=== PATIENT | female | born 1940 | race Caucasian/White ===

== ENCOUNTER 2018-10-31 09:58 | Inpatient (IN) | payer MEDICARE ==
[~2018-10-31] VITALS: Ht 152.4 cm; Wt 82.3 kg
[~2018-10-31 09:58] MED LIST: ASPI81CH PO; ATOR10 PO; ATOR40TA PO; CLON.1 PO; CLOP75 PO; HYDCHL25 PO; HYDR10 PO; HYDR1TAB94 PO; INDERAL XL80 MG PO; LEVE500 PO; LOSA50 PO; LOSARTAN-HCTZ1 EACH PO; Lisinopril2.5 MG PO; MECL12.5 PO; MELO7.5 PO; METF500 PO; Mobic15 MG PO; NIFE60ER PO; [UNRECOGNIZED DRUG - REMARK]
[2018-10-31 10:27] LABS: BASOPHILS ABSOLUTE AUTO 0.01 K/mm3 (0.00-0.23); BASOPHILS PERCENT AUTO 0 % (0-2); EOSINOPHILS PERCENT AUTO 0 % (0-6); Hematocrit 36.9 % (33.0-51.0); Hemoglobin 12.4 g/dL (11.5-16.0); IMMATURE GRAN ABSOLUTE AUTO 0.06 K/mm3 (0.00-0.10); IMMATURE GRAN PERCENT AUTO 0 % (0-1); LYMPHOCYTES ABSOLUTE AUTO 1.49 K/mm3 (0.84-5.20); LYMPHOCYTES PERCENT AUTO 10 % (21-46); MONOCYTES ABSOLUTE AUTO 1.11 K/mm3 (0.16-1.47); MONOCYTES PERCENT AUTO 8 % (4-13); Mean Corpuscular HGB 30.5 pg (26.0-34.0); Mean Corpuscular HGB Conc 33.6 g/dL (31.5-36.5); Mean Corpuscular Volume 91 fL (80-100); Mean Platelet Volume 10.7 fL (9.1-12.4); NEUTROPHILS ABSOLUTE AUTO 11.93 K/mm3 (1.96-9.15); NEUTROPHILS PERCENT AUTO 82 % (41-73); Platelet Count 234 K/mm3 (150-400); RDW Coefficient Variation 12.2 % (11.7-14.2); RDW Standard Deviation 40.3 fL (35.1-46.3); Red Blood Cell Count 4.07 M/mm3 (3.80-5.20)
[2018-10-31 10:31] LABS: Source, Urine Catheter
[2018-10-31 10:36] LABS: Bilirubin, Urine Neg (Neg); Blood, Urine 1+ (Neg); Glucose Qualitative, Urine Neg (Neg); Ketones, Urine 1+ (Neg); Leukocyte Esterase, Urine 1+ (Neg); Nitrite, Urine Neg (Neg); Protein, Urine 2+ (Neg); Urobilinogen, Urine 1+ (Normal)
[2018-10-31 10:48] LABS: Alanine Aminotransfer (ALT/SGP 16 U/L (12-78); Albumin, Blood 3.2 g/dL (3.4-5.0); Albumin/Globulin Ratio 0.7 (0.8-1.8); Alk Phos 69 U/L (50-136); Anion Gap 8 mmol/L (6-16); Aspartate Aminotrans (AST/SGOT 13 U/L (12-37); Bilirubin, Total 0.6 mg/dL (0.1-1.0); Blood Urea Nitrogen 16 mg/dL (8-24); Bun/Creatinine Ratio 19.2 (12.0-20.0); CO2, Blood 26 mmol/L (21-32); Calcium, Blood 8.5 mg/dL (8.5-10.1); Chloride, Blood 103 mmol/L (98-108); Creatinine, Blood 0.83 mg/dL (0.40-1.00); Globulin, Blood 4.3 g/dL (2.2-4.0); Glomerular Filtration Rate >60 (60-); Glucose, Blood 183 mg/dL (70-99); Potassium, Blood 3.2 mmol/L (3.5-5.5); Sodium, Blood 137 mmol/L (136-145); Total Protein, Blood 7.5 g/dL (6.4-8.2)
[2018-10-31 10:50] LABS: Appearance, Urine Clear (Clear); Color, Urine Yellow (P-Yellow)
[2018-10-31 10:55] LABS: Bacteria Not Seen /hpf; Red Blood Cells, Urine 0-2 /hpf (0-2); Squamous Epithelial Cells Few /hpf (Few); White Blood Cells, Urine 0-2 /hpf (0-5)
[2018-10-31 10:56] LABS: Mucus Light (0-Heavy); Transitional Epithelial Cells Few /hpf (0-Rare)
[2018-10-31 11:48] LABS: Influenza A Negative (NEGATIVE); Influenza B Negative (NEGATIVE)
[2018-10-31 11:58] LABS: International Normalized Ratio 1.14; Prothrombin Time Results 11.9 Sec (9.7-11.5)
[2018-10-31] MEDS ORDERED: **INCOMPLETE MED REC (13:18)
--- NOTE | 2018-10-31 17:23 | NUR ---
PT ARRIVED TO PCU 10 VIA GURNEY FROM ED. REPORT OBTAINED FROM ER NURSE, PT IS LAYING ON HER SIDE ON THE GURNEY, ASKED HER TO TURN TO HER BACK, BUT SHE ISN'T REALLY RESPONDING, MOVED HER ONTO THE BED, SHE CONTINUALLY TRIES TO MOVE TO THE SIDE, GOT HER INTO A GOWN, SHE IS FEBRILE AT 102.9. DID A BEDSIDE WATER SWALLOW EVAL WITH FAMILY IN ROOM, THEY ARE SAYING SHE CAN'T HEAR. WAS ABLE TO GET HER TO WAKE UP AND TAKE SOME WATER AND SWOLLOW A TYLENOL, SHE SWOLLOWED WELL. LUNGS ARE CLEAR DIM IN BASES, RESP EVEN AND UNLABORED, NOT ABLE TO REALLY COOPERATE WITH ASSESSMENT, SHE IS ON 2 LITERS OF 02 FROM ED, SATS IN THE MID 90'S, HRR, TELE IN PLACE RUNNING SR PER MONITOR, SEE STRIP, NO EDEMA NOTED, PPP+1, CAP REFILL <3SEC, VS STABLE, AFEBRILE, IV SITE TO RIGHT HAND 22G, SITE IS CLEAR AND PATENT, BTX4, ABD FLAT SOFT NONTENDER, ATTENDS IN PLACE, SKIN C/W/D, JOSE MARIA HENSON, ORIENTED FAMILY TO CALL LIGHT AND ROOM LAYOUT, CALL LIGHT IN REACH.
--- NOTE | 2018-10-31 18:20 | NUR ---
POWER GLIDE WAS PLACED TO LAUREEN FOR IV ACCESS, FLUSHES WELL. PT WAS GIVEN PO TYLENOL, HER TEMP IS NOW 104.1, DR. BLAIR NOTIFIED, RECIEVED ORDER FOR A ONE TIME DOSE OF TORIDAL, THIS WILL BE GIVEN. ICE PACK TO HER NECK AND COVERS ARE OFF. CALL LIGHT IN REACH.
--- NOTE | 2018-10-31 18:44 | NUR ---
PT UNCHANGED, TORIDAL GIVEN, ZOSYN HUNG, PT CURLED UP IN BED, UNCHANGED. CALL LIGHT IN REACH.
--- NOTE | 2018-10-31 19:25 | NUR ---
CARE ASSUMPTION PT LETHARGIC, OPENS EYES FOR SHORT TIME IN RESPONSE TO VERBAL STIMULATION. PT NOT VERBALLY RESPONDING, NOT NODDING/SHAKING HER HEAD FOR Y/N QUESTIONS EITHER. BP 91/50, TEMPERATURE 101.8 DESPITE PREVIOUS TX W/ ONE TIME ORDER BY MD BLAIR, SEE EMAR. FAN AND ICE PACK BEING ROTATED ON PT. WILL CONTINUE TO MONITOR AND PROVIDE CARE.
[2018-11-01 04:58] LABS: BASOPHILS ABSOLUTE AUTO 0.03 K/mm3 (0.00-0.23); BASOPHILS PERCENT AUTO 0 % (0-2); EOSINOPHILS PERCENT AUTO 0 % (0-6); Hematocrit 32.3 % (33.0-51.0); IMMATURE GRAN ABSOLUTE AUTO 0.06 K/mm3 (0.00-0.10); IMMATURE GRAN PERCENT AUTO 0 % (0-1); LYMPHOCYTES ABSOLUTE AUTO 1.11 K/mm3 (0.84-5.20); LYMPHOCYTES PERCENT AUTO 8 % (21-46); MONOCYTES PERCENT AUTO 6 % (4-13); Mean Corpuscular HGB 30.6 pg (26.0-34.0); Mean Corpuscular HGB Conc 34.1 g/dL (31.5-36.5); Mean Corpuscular Volume 90 fL (80-100); Mean Platelet Volume 10.9 fL (9.1-12.4); NEUTROPHILS ABSOLUTE AUTO 11.73 K/mm3 (1.96-9.15); NEUTROPHILS PERCENT AUTO 86 % (41-73); Platelet Count 200 K/mm3 (150-400); RDW Coefficient Variation 12.1 % (11.7-14.2); RDW Standard Deviation 40.4 fL (35.1-46.3); White Blood Cell Count 13.73 K/mm3 (4.00-11.30)
[2018-11-01 05:18] LABS: Anion Gap 9 mmol/L (6-16); Blood Urea Nitrogen 15 mg/dL (8-24); Bun/Creatinine Ratio 18.1 (12.0-20.0); CO2, Blood 25 mmol/L (21-32); Calcium, Blood 8.1 mg/dL (8.5-10.1); Chloride, Blood 105 mmol/L (98-108); Creatinine, Blood 0.83 mg/dL (0.40-1.00); Glomerular Filtration Rate >60 (60-); Glucose, Blood 165 mg/dL (70-99); Potassium, Blood 3.1 mmol/L (3.5-5.5); Sodium, Blood 139 mmol/L (136-145)
--- NOTE | 2018-11-01 05:58 | NUR ---
SHIFT SUMMARY PT MORE ALERT MID SHIFT, HOLDING EYES OPEN, SAYING WORDS BUT NOT ANSWERING QUESTIONS OR MAKING SENSE WHEN SPEAKING. PT WOKE STATING "I'M SUPPOSED TO BE.." REPEATIVELY W/OUT FINISHING SENTENCE. PT REORIENTED AND DIRECTED W/OUT RESPONSE FROM PT. PT TEMPERATURE ELEVATED. BLANKET REMOVED W/ PT GOWN & SHEET ONLY COVERING PT, PO TYLENOL GIVEN & FAN ON PT. PT LUNG SOUNDS CLEAR T/O, DIM IN BASES. SPO2 > 92% ON 2L NC OR RA T/O SHIFT. MONITOR SHOWS NSR, HR 70'S-90'S. PT INCONTINENT, WEARING ATTENDS. PRN ETIENNE CARE/ATTENDS CHANGES PROVIDED. PT'S DAUGHTER IN TO SEE PT THIS AM. PT DAUGHTER STATES PT'S OF 60 YRS 10/15/18 AND STATES "IT'S BEEN A ROUGH MONTH. SHE'S HARDLY BEEN EATING AND IT'S JUST BEEN A LOT." PT IN BED W/ SIDE RAILS UP X2, BED ALARM & TAB ALARM ON. PT REPOSITIONING SELF IN BED, GETTING UP TO EDGE OF BED REQUIRING STAFF ASSIST. WILL CONTINUE TO MONITOR AND PROVIDE CARE UNTIL REPORT OFF TO DAY SHIFT RN.
--- NOTE | 2018-11-01 07:55 | NUR ---
PT LAYING IN BED WITH EYES CLOSED, OPENS EYES AND LOOKS AT NURSE WHEN NAME IS CALLED AND SHE IS TOUCHED, NO VERBAL RESPONSE AT ALL. SHE IS COLD TRYING TO CUDDLE IN BLAKETS, STILL HAS A TEMP OF 100, BUT SEEMS MUCH MORE COMFORTABLE THAN LAST NIGHT WHEN SHE WAS 104.2. LUNGS ARE A BIT COURSE T/O, RESP EVEN AND UNLABORED, NO COUGH NOTED, HRR, TELE IN PLACE RUNNING SR WITH A BBB, NO EDEMA NOTED, PPP+2, CAP REFILL <3SEC, VS STABLE, AFEBRILE, IV SITES ARE CLEAR AND PATENT, PIV TO LEFT HAND 22 G, POWER GLIDE TO LAUREEN INFUSING LR ORDERED, BTX4, ABD ROUND SOFT NONTENDER, INCONT OF URINE, ATTENDS IN PLACE, SKIN C/W/D, JOSE MARIA HENSON, CALL LIGHT IN REACH.
--- NOTE | 2018-11-01 12:17 | NUR ---
PT HAS A TEMP OF 104.7, TYLENOL GIVEN AFTER A SIP OF WATER, NO SIGHNS OF COUGHING AFTER WATER. WHEN SHE DOES SPEAK IT IS WORD SALAD. CALL LIGHT IN REACH.
--- NOTE | 2018-11-01 18:38 | NUR ---
GRAND DAUGHTER WAS IN CRYING BECAUSE SHE TOOK HER TEMP AND THOUGHT IT WAS 104, EXPLAINED THAT IT HAS GONE UP TODAY, BUT SHE RESPONDED TO TYLENOL, THIS NURSE CHECKED IT, IS 102.6, THERE IS ONE THERMOMETER THAT IS NOT REGISTERING CORRECTLY, SHE WAS ASKED NOT TO DO THIS HERSELF, AND ASK TO HAVE IT DONE, GAVE PT A TYLENOL, WITH WATER, SHE SWALLOWED FINE, CALL TO DR. BLAIR FOR ORDERS FOR CLEAR LIQUIDS, HE ALSO ORDERED IBUPROPHEN, CALL LIGHT IN REACH.
--- NOTE | 2018-11-01 18:45 | NUR ---
GAVE PT SHADI, SHE ATE IT ENTHUSIASTICALLY WITHOUT DIFF, NO COUGHING. TEMP NOW 99.2. CALL LIGHT IN REACH.
--- NOTE | 2018-11-01 19:38 | NUR ---
PM NOTE. ASSUMED CARE OF PT APROX 1900, PT WAKES TO VERBAL STIMULUS, PT NODS HER HEAD AND SMILES WHEN ASKED WHERE SHE IS AT, WHAT HER NAME IS AND DATE. PT FALLS BACK ASLEEP QUICKLY WHEN NOT TALKING TO HER. PT IS UNABLE TO RESPOND PROPERLY TO QUESTIONS AT THIS TIME. TELE INTACT, NSR IN THE 80'S PER DIRECTOR EXPORT, PT'S BP 108/58. NO EDEMA NOTED ON ASSESSMENT. L/S SLIGHTLY COARSE T/O AND DIM IN THE BASES, PT'S O2 STATS ARE >90% ON RA. BT PRESENT AND HYPERACTIVE, ABD IS SOFT AND NONTENDER TO PALP. PT IS INCONT OF BOWEL AND BLADDER, ATTENDS ARE C/D/I AT THIS TIME. PT IS 2 Q TURNS, BUT PT IS ABLE TO MOVE HERSELF IN BED AT TIMES. CALL LIGHT IN REACH, BED IS LOCKED AND LOW, BED ALARM IN ON, WILL CONTINUE TO MONITOR.
--- NOTE | 2018-11-01 23:59 | NUR ---
PT UPDATE... DURING A VS CHECK PT'S TEMP IS NOTED TO BE 104.8, PT CHECKS ARE FLUSHED, HER WHOLE BODY IS VERY WARM TO TOUCH EXCEPT HER HANDS. PT IS VERY LETHARGIC AND WILL OPEN HER EYES TO TOUCH AND VERBAL STIMULUS. PT HAS WORD SALAD.
[2018-11-02 04:01] LABS: BASOPHILS ABSOLUTE AUTO 0.02 K/mm3 (0.00-0.23); BASOPHILS PERCENT AUTO 0 % (0-2); EOSINOPHILS PERCENT AUTO 0 % (0-6); Hematocrit 31.5 % (33.0-51.0); Hemoglobin 10.5 g/dL (11.5-16.0); IMMATURE GRAN ABSOLUTE AUTO 0.06 K/mm3 (0.00-0.10); IMMATURE GRAN PERCENT AUTO 1 % (0-1); LYMPHOCYTES PERCENT AUTO 11 % (21-46); MONOCYTES ABSOLUTE AUTO 1.05 K/mm3 (0.16-1.47); MONOCYTES PERCENT AUTO 8 % (4-13); Mean Corpuscular HGB 30.6 pg (26.0-34.0); Mean Corpuscular HGB Conc 33.3 g/dL (31.5-36.5); Mean Corpuscular Volume 92 fL (80-100); Mean Platelet Volume 10.7 fL (9.1-12.4); NEUTROPHILS ABSOLUTE AUTO 10.58 K/mm3 (1.96-9.15); NEUTROPHILS PERCENT AUTO 80 % (41-73); Platelet Count 184 K/mm3 (150-400); RDW Coefficient Variation 12.4 % (11.7-14.2); Red Blood Cell Count 3.43 M/mm3 (3.80-5.20); White Blood Cell Count 13.21 K/mm3 (4.00-11.30)
[2018-11-02 04:18] LABS: Anion Gap 9 mmol/L (6-16); Blood Urea Nitrogen 17 mg/dL (8-24); Bun/Creatinine Ratio 21.9 (12.0-20.0); CO2, Blood 24 mmol/L (21-32); Calcium, Blood 7.9 mg/dL (8.5-10.1); Chloride, Blood 106 mmol/L (98-108); Creatinine, Blood 0.78 mg/dL (0.40-1.00); Glomerular Filtration Rate >60 (60-); Glucose, Blood 152 mg/dL (70-99); Potassium, Blood 3.1 mmol/L (3.5-5.5); Sodium, Blood 139 mmol/L (136-145)
--- NOTE | 2018-11-02 06:37 | NUR ---
SHIFT SUMMARY. PT STILL REMAINES FEBRILE AT 100.7. PT HAS BEEN VERY SLEEP T/O SHIFT, WAKING TO TOUCH OR VERBAL STIMULUS BUT FALLS BACK ASLEEP QUICKLY. PT HAS HAD COOL WASH CLOTH AND ICE PACKS T/O THIS SHIFT WELL. PT DOES NOT RESPOND APROP TO QUESTIONS AND HAS WORD SALAD WHEN SHE DOES ATTEMPT TO ANSWER. PT HAS BEEN INCONT WITH ATTEMPTS TO USE THE BED LUZ. PT'S OTHER VS HAVE BEEN STABLE. CALL LIGHT IN REACH, BED IS LOCKED AND LOW W/BED ALARM ON. WILL CONTINUE TO MONITOR UNTIL REPORT IS GIVEN TO ONCOMING RN.
--- NOTE | 2018-11-02 08:22 | NUR ---
NURSING PCU DAYSHIFT: Assumed care of pt at approx 0700. Alert and oriented this a.m., ROSEBUD though this is worse on the L d/t chronic infection, green drainage noted from ear, afebrile. General weakness present though able to move all ext's equally. Answers orientation questions appropriately. Skin is fragile w/no breakdown noted. Tele in place, NSR w/BBB, murmur noted, BP stable, no noted edema, no c/o CP/pressure, L/S w/crackles present in RUL, denies dyspnea, no noted cough, O2 sat stable on RA. Abd SNT, BT+, incontinent of urine at times. PIV x1 s/l, PG present in RUE w/LR infusing at 125cc/hr. Pt currently sitting up in bed independently having a CL breakfast. Denies any current needs or questions regarding plan of care. Oriented to call system and fall prevention discussed. Bed alarm set for safety purposes. Awaiting rounding from PMD, cont to monitor for any changes.
[2018-11-02 13:30] LABS: Vancomycin, Trough 2.5 ug/mL (5.0-10.0)
[2018-11-02] MEDS ORDERED: DICL75ER PO (14:54)
--- NOTE | 2018-11-02 16:38 | NUR ---
NURSING PCU DAYSHIFT SUMMARY: Pt has continued to show improvement t/o the shift. OOB to BSC and chair w/two staff assist. Remains weak though able to transfer w/direction. Tolerated approx 2hrs OOB before becoming tired and wanting to go BTB for a nap. Bed bath and linen change completed by QUALITY ASSISTANT. Family at bedside in the afternoon. Update provided, plan of care discussed. Pt's family appeared pleased w/the noted improvement and spent time at the bedside conversing with pt. Bed alarm remains in use though pt has appropriately used the call light t/o the entire shift. Currently denies any questions/needs. Cont to monitor until rpt is given to NOC RN.
[2018-11-02 18:36] LABS: U Amphetamine Screen Not Detected; U Barbituate Screen Not Detected; U Benzodiazapine Screen Not Detected; U Buprenorphine Screen Not Detected; U Cannabinoids Screen Not Detected; U Cocaine Screen Not Detected; U Methadone Screen Not Detected; U Methamphetamine Screen Not Detected; U Opiates Screen Not Detected; U Oxycodone Screen Not Detected; U Phencyclidine Screen Not Detected; U Propoxyphene Screen Not Detected
--- NOTE | 2018-11-02 20:08 | NUR ---
PM NOTE. ASSUMED CARE OF PT APROX 1900, PT IS A&O, SHE IS ABLE TO STATE WHERE SHE IS, THE MONTH, AND THE PRESIDENT, PT STATED IT WAS 1995 AND DID NOT KNOW THE DAY. PT IS ABLE TO RESPOND PROPERLY TO QUESTIONS AND FOLLOWS DIRECTION, THIS IS A GREAT IMPROVMENT FROM LAST NOC SHIFT. PT IS CONT AND IS ABLE TO USE THE [facility] W/2 PERSON TRANSFER. TELE INTACT, SNR W/BBB IN THE 80'S PER FILING CLERK, PT'S BP 131/72, PT HAS NO EDEMA ON ASSESSMENT. PT L/S ARE CLEAR T/O BUT COARSE IN THE BASES, PT IS ON RA W/STATS >90%. RESPIRATIONS ARE EVEN AND UNLABORED AT REST, RR INCREASED FROM 21 TO 24 W/TRANSFER TO THE [facility], BREATHIING BECAME SLIGHTLY LABORED AT THAT TIME BUT STATS WERE STILL IN THE HIGH 90%. BT PRESENT AND HYPERACTIVE, ABD IS SOFT AND NONTENDER TO PALP. CALL LIGHT IN REACH, BED IS LOCKED AND LOW WILL CONTINUE TO MONITOR.
--- NOTE | 2018-11-03 06:32 | NUR ---
SHIFT SUMMARY. NO ACUTE CHANGES NOTED THIS SHIFT. PT HAS BEEN A&O AND HAS BEEN USING HER CALL LIGHT APROP TO CALL STAFF TO USE THE BSC, PT HAS BEEN CONT ALL SHIFT. PT'S VS HAVE BEEN STABLE T/O. CALL LIGHT IN REACH, BED IS LOCKED AND LOW WILL CONTINUE TO MONITOR UNTIL REPORT IS GIVEN TO ONCOMING RN.
--- NOTE | 2018-11-03 08:03 | NUR ---
NURSING PCU DAYSHIFT: Assumed care of pt at approx 0700. A/O, very pleasant, cooperative w/care. COWLITZ though L worse than R, small amt of green drainage noted in L ear canal. Skin is intact w/no breakdown noted. General weakness, able to transfer w/two staff assist. Denies any pain/discomfort. Tele in place, NSR w/BBB, no c/o CP/pressure, murmur auscultated, SBP 90's, no noted edema. L/S cta t/o, O2 sat upper 90's on RA, denies dyspnea, no noted cough. Abd SNT, BT+, voiding w/o difficulty. PG present in RUE, s/l. Pt currently OOB in chair for FL breakfast, plan to upgrade to soft diet for lunch, pt is agreeable. Pt denies any current needs or questions regarding plan of care. Call light in reach, tab alarm in use for safety purposes. Awaiting rounding from PMD, cont to monitor for any changes.
[2018-11-03 14:03] LABS: Adenovirus F 40/41 Not Detected (NOT DETECT); Astrovirus Not Detected (NOT DETECT); Campylobacter Sp Not Detected (NOT DETECT); Cryptosporidium Not Detected (NOT DETECT); Cyclospora Cayetanensis Not Detected (NOT DETECT); E. Coli O157 Not Detected (NOT DETECT); Entamoeba Histolytica Not Detected (NOT DETECT); Enteroaggregative E. coli-EAEC Not Detected (NOT DETECT); Enteropathogenic E. coli-EPEC Not Detected (NOT DETECT); Enterotoxigenic E. coli-ETEC Not Detected (NOT DETECT); Giardia Lamblia Not Detected (NOT DETECT); Norovirus GI/GII Not Detected (NOT DETECT); Plesiomonas Shigelloides Not Detected (NOT DETECT); Rotavirus A Not Detected (NOT DETECT); Salmonella Sp Not Detected (NOT DETECT); Sapovirus Not Detected (NOT DETECT); Shiga Toxin-prod E. coli-STEC Not Detected (NOT DETECT); Shigella/Enteroin E. coli-EIEC Not Detected (NOT DETECT); Vibrio Cholerae Not Detected (NOT DETECT); Vibrio Sp Not Detected (NOT DETECT); Yersinia Enterocolitica Not Detected (NOT DETECT)
--- NOTE | 2018-11-03 18:20 | NUR ---
NURSING PCU DAYSHIFT SUMMARY: Pt has continued to do well t/o the shift. VS have remained stable, cardiac and respiratory status unchanged. Pt has remained oriented and appropriate t/o the shift. Upgraged to soft diet, tolerating w/no noted signs of aspiration. Remains weak and requires staff assistance w/transfers. Family at bedside t/o the shift, update provided. ENT consult placed and called to answering service for tomorrow (11/04/18). Seen by PMD at bedside, plan of care discussed. Pt currently denies any questions/needs. Call light remains in reach, cont to monitor until rpt is given to NOC RN.
--- NOTE | 2018-11-03 20:55 | NUR ---
PM NOTE. ASSUMED CARE OF PT APROX 1900, PT IS A&O, BUT SLOW TO RESPOND, PT IS ABLE TO ANSWER QUESTIONS APPROPRIATELY. PT HAS GREATLY IMPROVED FROM LAST BLACK TOP RAKER. TELE INTACT, NSR W/BBB IN THE 70'S PER SALAD COUNTER ATTENDANT, PT'S BP 118/74. NO EDEMA NOTED ON ASSESSMENT. PT'S L/S CLEAR T/O. BT PRESENT AND HYPERACTIVE, ABD IS SOFT AND NONTENDER TO PALP. GREEN DISCHARGE IS NOTED FROM THE PT'S LEFT EAR, OUTER EAR WAS CLEANED WITH WARM DAMP WASH RAG. ENT CONSULT WAS PLACED AND ENT PROVIDER TO SEE PT IN THE AM. CALL LIGHT IN REACH, BED IS LOCKED W/BED ALARM ON, WILL CONTINUE TO MONITOR.
[2018-11-04 05:13] LABS: BASOPHILS ABSOLUTE AUTO 0.01 K/mm3 (0.00-0.23); BASOPHILS PERCENT AUTO 0 % (0-2); EOSINOPHILS ABSOLUTE AUTO 0.49 K/mm3 (0.00-0.68); EOSINOPHILS PERCENT AUTO 7 % (0-6); Hematocrit 28.2 % (33.0-51.0); Hemoglobin 9.3 g/dL (11.5-16.0); IMMATURE GRAN ABSOLUTE AUTO 0.05 K/mm3 (0.00-0.10); IMMATURE GRAN PERCENT AUTO 1 % (0-1); LYMPHOCYTES ABSOLUTE AUTO 1.51 K/mm3 (0.84-5.20); LYMPHOCYTES PERCENT AUTO 23 % (21-46); MONOCYTES ABSOLUTE AUTO 0.46 K/mm3 (0.16-1.47); MONOCYTES PERCENT AUTO 7 % (4-13); Mean Corpuscular HGB 30.1 pg (26.0-34.0); Mean Corpuscular Volume 91 fL (80-100); Mean Platelet Volume 11.3 fL (9.1-12.4); NEUTROPHILS ABSOLUTE AUTO 4.19 K/mm3 (1.96-9.15); NEUTROPHILS PERCENT AUTO 63 % (41-73); Platelet Count 181 K/mm3 (150-400); RDW Coefficient Variation 12.5 % (11.7-14.2); Red Blood Cell Count 3.09 M/mm3 (3.80-5.20); White Blood Cell Count 6.71 K/mm3 (4.00-11.30)
--- NOTE | 2018-11-04 05:57 | NUR ---
SHIFT SUMMARY. NO ACUTE CHANGES NOTED THIS SHIFT. PT'S VS HAVE BEEN STABLE, PT DENIES CHEST PAIN/PRESSURE, SOB OR N/V. PT HAS BEEN A 1 PERSON ASSIST TO THE BSC AND CALLS APPROPRIATELY. PT TOLD THIS RN THAT NORMALLY SHE HAS GREEN DISCHARGE FROM HER RIGHT EAR AND NOT HER LEFT, PT STATES THIS IS NEW. CALL LIGHT IN REACH, BED IS LOCKED AND LOW WILL CONTINUE MONITOR UNTIL REPORT IS GIVEN TO ONCOMING RN.
[2018-11-04 06:26] LABS: Anion Gap 10 mmol/L (6-16); Blood Urea Nitrogen 16 mg/dL (8-24); Bun/Creatinine Ratio 22.5 (12.0-20.0); CO2, Blood 22 mmol/L (21-32); Calcium, Blood 7.8 mg/dL (8.5-10.1); Chloride, Blood 109 mmol/L (98-108); Creatinine, Blood 0.71 mg/dL (0.40-1.00); Glomerular Filtration Rate >60 (60-); Glucose, Blood 119 mg/dL (70-99); Potassium, Blood 3.5 mmol/L (3.5-5.5); Sodium, Blood 141 mmol/L (136-145)
--- NOTE | 2018-11-04 12:07 | NUR ---
Assumed Care: Assumed care of pt at approx 0700. VSS. In no apparent sign of distress. Denies any pain. Deneis any acute complaints or events this AM. Pt is A&Ox4 this AM and responding appropriately to all questions. Pt is medical status, but no bed assignment at this time. Pt repositions self in bed. Pt is currently resting in bed with call light within reach. See shift assessment for detailed assessment. Denies any further questions, complaints or requests at this time. Will continue to monitor.
--- NOTE | 2018-11-04 19:25 | NUR ---
Shift Summary No acute changes since initial shift assessment. VSS. In no apparent sign of distress. Pt has remained A&Ox4. Calls appropriately and repositions self. No acute changes on tele. Pt has remained on RA. At approx 1750 pt began to sound mildly wheezy in very far upper airways, but lungs clear t/o when auscultating with stethoscope. Repositioned pt and examined throat which did not appear swollen. Wheezing sound improved with repositiong. Pt not SOB. Pt denies any acute events/complaints t/o the shift. Pt is currently resting in bed with call light within reach. Denies any further questions, complaints or requests at this time. Report given to keke SAMPSON.
--- NOTE | 2018-11-05 06:04 | NUR ---
SHIFT SUMMARY PT ALERT AND ORIENTED. VS STABLE. PT ABLE TO CALL APPROPRIATELY AND REPOSITION SELF INDEPENDENTLY. PT HAS REMAINED ON RA WITH 02 SATS >92%. LS EXP WHEEZES IN UPPER LOBES. PT ABLE TO AMBULATE TO BS NEEDED TO VOID. PT DENIES FEELING SOB. HR DECREASED TO 40'S ON TELE, BUT PT ASYMPTOMATIC. PULSE CHECKED AT THE BEDSIDE MANUALLY WAS 68. BP STABLE. WILL CONTINUE TO MONITOR AND REPORT TO ONCOMING RN. CALL LIGHT IN REACH.
--- NOTE | 2018-11-05 08:10 | NUR ---
INITIAL ASSESSMENT: Pt sitting up in chair. Denies pain. A/O x 4 this am. LS with some exp wheezing in upper lobes. BT positive. Pulses palp. HR reg, slight murmur. VSS. Up in chair for breakfast. Call light in reach. Will monitor.
[2018-11-05] MEDS ORDERED: ACET500 PO (15:12)
[2018-11-05] MEDS ORDERED: LEVFLO500 PO (15:13)
[2018-11-05] MEDS ORDERED: METO25 PO (15:13)
--- NOTE | 2018-11-05 15:42 | NUR ---
DISCHARGE: Pt and son given verbal and written discharge instructions, deines questions. Power glide discontinued, cath intact. Rx called to [facility] on [address] and [address]. Stable at time of discharge. Left via w/c with [facility]
== END 2018-11-05 15:33 | disposition home or self-care (01) | DRG 871 ==
LOC: ER 09:58 → PCU 13:35
PROVIDERS: Emergency Medicine; Pharmacist; ADMIT Internal Medicine
DX: A40.3 Sepsis due to Streptococcus pneumoniae (principal); J18.9 Pneumonia, unspecified organism; G92 Toxic encephalopathy; R65.20 Severe sepsis without septic shock; I10 Essential (primary) hypertension; E87.6 Hypokalemia; D64.9 Anemia, unspecified; H60.60 Unspecified chronic otitis externa, unspecified ear; E78.5 Hyperlipidemia, unspecified; K21.9 Gastro-esophageal reflux disease without esophagitis; Z86.73 Personal history of transient ischemic attack (TIA), and cerebral infarction without residual deficits; Z87.891 Personal history of nicotine dependence; Z79.02 Long term (current) use of antithrombotics/antiplatelets; Z79.899 Other long term (current) drug therapy
CPT/HCPCS: 36415; 70450; 71045; 80048; 80053; 80202; 81001; 83605; 84132; 84145; 84484; 85025; 85610; 85651; 87040; 87184; 87186; 87507; 87804; 93005; 93010; 94761; 96361; 96365; 96366; 96367; 99285-25; C1751; J0696; J1650; J1885; J2543; J3370; J3480; J7120; P9612

== ENCOUNTER 2021-08-26 09:31 | Emergency (ER) | payer MEDICARE ==
[~2021-08-26] VITALS: Ht 152.4 cm; Wt 67.1 kg
[~2021-08-26 09:31] MED LIST changes: +**INCOMPLETE MED REC; +ACET500 PO; +DICL75ER PO; +LEVFLO500 PO; +METO25 PO
[2021-08-26 10:50] LABS: BASOPHILS ABSOLUTE AUTO 0.02 K/mm3 (0.00-0.23); BASOPHILS PERCENT AUTO 0 % (0-2); EOSINOPHILS PERCENT AUTO 2 % (0-6); Hematocrit 38.4 % (33.0-51.0); Hemoglobin 12.9 g/dL (11.5-16.0); IMMATURE GRAN ABSOLUTE AUTO 0.01 K/mm3 (0.00-0.10); IMMATURE GRAN PERCENT AUTO 0 % (0-1); LYMPHOCYTES ABSOLUTE AUTO 1.18 K/mm3 (0.84-5.20); LYMPHOCYTES PERCENT AUTO 22 % (21-46); MONOCYTES ABSOLUTE AUTO 0.39 K/mm3 (0.16-1.47); MONOCYTES PERCENT AUTO 7 % (4-13); Mean Corpuscular HGB 30.6 pg (26.0-34.0); Mean Corpuscular HGB Conc 33.6 g/dL (31.5-36.5); Mean Corpuscular Volume 91 fL (80-100); NEUTROPHILS ABSOLUTE AUTO 3.73 K/mm3 (1.96-9.15); NEUTROPHILS PERCENT AUTO 69 % (41-73); Platelet Count 282 K/mm3 (150-400); RDW Coefficient Variation 12.7 % (11.7-14.2); Red Blood Cell Count 4.21 M/mm3 (3.80-5.20); White Blood Cell Count 5.43 K/mm3 (4.00-11.30)
[2021-08-26 10:55] LABS: Alanine Aminotransfer (ALT/SGP 19 U/L (12-78); Albumin, Blood 3.5 g/dL (3.4-5.0); Alk Phos 72 U/L (50-136); Anion Gap 8 mmol/L (6-16); Aspartate Aminotrans (AST/SGOT 18 U/L (12-37); Bilirubin, Total 0.5 mg/dL (0.1-1.0); Blood Urea Nitrogen 16 mg/dL (8-24); Bun/Creatinine Ratio 20.9 (12.0-20.0); CO2, Blood 30 mmol/L (21-32); Chloride, Blood 103 mmol/L (98-108); Creatinine, Blood 0.76 mg/dL (0.40-1.00); Globulin, Blood 3.6 g/dL (2.2-4.0); Glomerular Filtration Rate >60 (60-); Glucose, Blood 123 mg/dL (70-99); Potassium, Blood 3.3 mmol/L (3.5-5.5); Sodium, Blood 141 mmol/L (136-145); Total Protein, Blood 7.1 g/dL (6.4-8.2); Troponin I <0.015 ng/mL (0.000-0.040)
== END 2021-08-26 12:20 | disposition home or self-care (01) ==
LOC: ER 09:31
PROVIDERS: Emergency Medicine
DX: R07.9 Chest pain, unspecified (principal); R20.2 Paresthesia of skin; E78.5 Hyperlipidemia, unspecified; I10 Essential (primary) hypertension; K21.9 Gastro-esophageal reflux disease without esophagitis; E11.9 Type 2 diabetes mellitus without complications
CPT/HCPCS: 36415; 71045; 80053; 84484; 85025; 93005; 93010; 99284-25

== ENCOUNTER → 2021-10-06 | Outpatient (CLI) | payer MEDICARE | LOC: LAB SHORT 19:47 → LAB 19:47 | DX: N39.0 Urinary tract infection, site not specified (principal) | CPT/HCPCS: 87077; 87086; 87186 ==

== ENCOUNTER → 2023-10-31 | Outpatient (CLI) | payer MEDICARE ==
[2023-10-31 19:19] LABS: Albumin, Blood 3.6 g/dL (3.4-5.0); Albumin/Globulin Ratio 0.9 (0.8-1.8); Bilirubin, Total 0.5 mg/dL (0.1-1.0); Bun/Creatinine Ratio 15.2 (12.0-20.0); Calcium, Blood 9.6 mg/dL (8.5-10.1); Creatinine, Blood 0.85 mg/dL (0.40-1.00); Potassium, Blood 3.3 mmol/L (3.5-5.5); Total Protein, Blood 7.6 g/dL (6.4-8.2)
== END | disposition home or self-care (01) ==
LOC: LAB SHORT 17:16 → LAB 17:16
PROVIDERS: Family Medicine
DX: E87.6 Hypokalemia (principal); E55.9 Vitamin D deficiency, unspecified
CPT/HCPCS: 80053; 82306

== ENCOUNTER → 2024-02-27 | Outpatient (CLI) | payer MEDICARE ==
[~2024-02-27] MED LIST changes: +AMLO5 PO; +NEURONTIN300 MG PO; +SPIRONOLACTONE25 MG PO; +VITAMIN D310 MC5 PO
== END | disposition home or self-care (01) ==
LOC: LAB SHORT 15:33 → LAB 15:33
DX: K25.0 Acute gastric ulcer with hemorrhage (principal)
CPT/HCPCS: 87338

== ENCOUNTER → 2024-07-21 | Outpatient (CLI) | payer MEDICARE ==
[2024-07-21 18:45] LABS: BASOPHILS ABSOLUTE AUTO 0.02 K/mm3 (0.00-0.23); BASOPHILS PERCENT AUTO 0 % (0-2); EOSINOPHILS ABSOLUTE AUTO 0.21 K/mm3 (0.00-0.68); EOSINOPHILS PERCENT AUTO 4 % (0-6); Hematocrit 34.7 % (33.0-51.0); Hemoglobin 11.8 g/dL (11.5-16.0); IMMATURE GRAN ABSOLUTE AUTO 0.01 K/mm3 (0.00-0.10); IMMATURE GRAN PERCENT AUTO 0 % (0-1); LYMPHOCYTES ABSOLUTE AUTO 2.01 K/mm3 (0.84-5.20); LYMPHOCYTES PERCENT AUTO 34 % (21-46); MONOCYTES ABSOLUTE AUTO 0.61 K/mm3 (0.16-1.47); MONOCYTES PERCENT AUTO 10 % (4-13); Mean Corpuscular HGB 30.1 pg (26.0-34.0); Mean Corpuscular Volume 89 fL (80-100); Mean Platelet Volume 11.2 fL (9.1-12.4); NEUTROPHILS ABSOLUTE AUTO 3.13 K/mm3 (1.96-9.15); NEUTROPHILS PERCENT AUTO 52 % (41-73); Platelet Count 281 K/mm3 (150-400); RDW Coefficient Variation 14.6 % (11.7-14.2); Red Blood Cell Count 3.92 M/mm3 (3.80-5.20); White Blood Cell Count 5.99 K/mm3 (4.00-11.30)
[2024-07-21 20:20] LABS: Alanine Aminotransfer (ALT/SGP 19 U/L (12-78); Albumin, Blood 3.7 g/dL (3.4-5.0); Albumin/Globulin Ratio 0.9 (0.8-1.8); Alk Phos 83 U/L (50-136); Anion Gap 12 mmol/L (3-11); Aspartate Aminotrans (AST/SGOT 17 U/L (12-37); Bilirubin, Total 0.3 mg/dL (0.1-1.0); Blood Urea Nitrogen 12 mg/dL (8-24); Bun/Creatinine Ratio 16.6 (12.0-20.0); CHOL/HDL RATIO 2.1; CO2, Blood 25 mmol/L (21-32); Calcium, Blood 9.6 mg/dL (8.5-10.1); Chloride, Blood 102 mmol/L (98-108); Cholesterol 144 mg/dL (50-200); Creatinine, Blood 0.72 mg/dL (0.40-1.00); Glomerular Filtration Rate 83 (60-); Glucose, Blood 97 mg/dL (70-99); HDL Cholesterol 70 mg/dL (>39); LDL/HDL RATIO 0.7; Low Density Lipoprotein Chol 47 mg/dL (0-110); Potassium, Blood 3.2 mmol/L (3.5-5.5); Sodium, Blood 136 mmol/L (136-145); Total Protein, Blood 7.7 g/dL (6.4-8.2); Triglycerides 136 mg/dL (30-160); Very Low Density Lipoprot Chol 27 mg/dL (6-32)
== END ==
LOC: LAB 14:10 → LAB SHORT 14:10
PROVIDERS: Family Medicine
DX: E55.9 Vitamin D deficiency, unspecified (principal); E78.2 Mixed hyperlipidemia; I10 Essential (primary) hypertension
CPT/HCPCS: 80053; 80061; 82306; 85025

== ENCOUNTER 2024-09-02 13:47 | Observation (INO) | payer OTHER, MEDICARE ==
[~2024-09-02] VITALS: Ht 152.4 cm; Wt 68.0 kg
[~2024-09-02 13:47] MED LIST changes: +AMLO10 PO; -AMLO5 PO; -VITAMIN D310 MC5 PO; +VITAMIN D31000 UNI1 PO
[2024-09-02] MEDS ORDERED: FentaNYL Citrate 50 MCG/ML 2 ML Injection IV PRN (21:10)
[2024-09-02] MEDS ORDERED: FLU VACC TS2024-25(6MOS UP)/PF 45 MCG/0.5 ML SYRINGE IM ONE (21:10)
[2024-09-02] MEDS ORDERED: Lactated Ringer's 1,000 ML IV SCH (21:10)
[2024-09-02] MEDS ORDERED: Ondansetron HCl 2 MG / ML 2ML Vial IV PRN (21:10)
[2024-09-02] MEDS ORDERED: HYDROcodone 5-APAP 325 TAB PO PRN (21:10)
[2024-09-02] MEDS ORDERED: LOSARTAN-HCTZ1 EAC6 PO (22:50)
[2024-09-02] MEDS ORDERED: PEPCID40 MG PO (22:52)
[2024-09-02 23:04] VITALS: BP 134/64
[2024-09-03 02:19] VITALS: BP 120/67
[2024-09-03 05:30] LABS: BASOPHILS ABSOLUTE AUTO 0.02 K/mm3 (0.00-0.23); BASOPHILS PERCENT AUTO 0 % (0-2); EOSINOPHILS ABSOLUTE AUTO 0.23 K/mm3 (0.00-0.68); EOSINOPHILS PERCENT AUTO 4 % (0-6); Hemoglobin 11.6 g/dL (11.5-16.0); IMMATURE GRAN ABSOLUTE AUTO 0.01 K/mm3 (0.00-0.10); IMMATURE GRAN PERCENT AUTO 0 % (0-1); LYMPHOCYTES PERCENT AUTO 32 % (21-46); MONOCYTES ABSOLUTE AUTO 0.56 K/mm3 (0.16-1.47); MONOCYTES PERCENT AUTO 11 % (4-13); Mean Corpuscular HGB 29.4 pg (26.0-34.0); Mean Corpuscular HGB Conc 33.1 g/dL (31.5-36.5); Mean Corpuscular Volume 89 fL (80-100); Mean Platelet Volume 11.1 fL (9.1-12.4); NEUTROPHILS ABSOLUTE AUTO 2.73 K/mm3 (1.96-9.15); NEUTROPHILS PERCENT AUTO 52 % (41-73); Platelet Count 228 K/mm3 (150-400); RDW Coefficient Variation 13.6 % (11.7-14.2); RDW Standard Deviation 44.3 fL (35.1-46.3); Red Blood Cell Count 3.94 M/mm3 (3.80-5.20); White Blood Cell Count 5.25 K/mm3 (4.00-11.30)
[2024-09-03 07:05] VITALS: BP 131/82
[2024-09-03 08:18] LABS: Bun/Creatinine Ratio 9.8 (12.0-20.0); Calcium, Blood 9.1 mg/dL (8.5-10.1); Creatinine, Blood 0.82 mg/dL (0.40-1.00); Potassium, Blood 3.1 mmol/L (3.5-5.5)
[2024-09-03] MEDS ORDERED: AmLODIPine Besylate 5 MG Tab PO SCH (09:00)
[2024-09-03] MEDS ORDERED: Losartan/HCTZ 50-12.5 TAB PO SCH (09:00)
[2024-09-03] MEDS ORDERED: Spironolactone 25 MG Tab PO SCH (09:00)
[2024-09-03] MEDS ORDERED: Docusate Sodium 100 MG Cap PO SCH (09:00)
[2024-09-03] MEDS ORDERED: Gabapentin 300 MG Cap PO SCH (09:00)
[2024-09-03] MEDS ORDERED: Atorvastatin 10 MG Tab PO SCH (09:00)
[2024-09-03 15:10] VITALS: BP 95/69
[2024-09-03 19:54] VITALS: BP 137/65
[2024-09-04 04:01] VITALS: BP 152/72
[2024-09-04] MEDS ORDERED: Potassium Chloride 20 MEQ TabCR PO SCH (09:00)
[2024-09-04] MEDS ORDERED: Norco 5-325 Ta1 EACH PO (09:24)
== END 2024-09-04 11:09 | disposition home or self-care (01) ==
LOC: ER 13:47 → MEDS 13:48 → ERHOLD 13:48 → MEDS 22:49
PROVIDERS: ADMIT Surgery
DX: R07.89 Other chest pain (principal); V49.40XA Driver injured in collision with unspecified motor vehicles in traffic accident, initial encounter; I10 Essential (primary) hypertension; E11.9 Type 2 diabetes mellitus without complications; E78.5 Hyperlipidemia, unspecified; K21.9 Gastro-esophageal reflux disease without esophagitis; G40.909 Epilepsy, unspecified, not intractable, without status epilepticus; Z79.02 Long term (current) use of antithrombotics/antiplatelets; Z79.899 Other long term (current) drug therapy; Z87.891 Personal history of nicotine dependence
CPT/HCPCS: 36415; 70450; 71046; 71250; 74177; 80048; 84484; 85025; 93005; 93010; 99285-25; A9270; G0378; J7120; Q9967

== ENCOUNTER → 2025-08-19 | Outpatient (CLI) | payer MEDICARE, OTHER ==
[~2025-08-19] MED LIST changes: +LOSARTAN-HCTZ1 EAC6 PO; +Norco 5-325 Ta1 EACH PO; +PEPCID40 MG PO
[2025-08-19 16:23] LABS: BASOPHILS ABSOLUTE AUTO 0.03 K/mm3 (0.00-0.23); BASOPHILS PERCENT AUTO 1 % (0-2); EOSINOPHILS ABSOLUTE AUTO 0.18 K/mm3 (0.00-0.68); EOSINOPHILS PERCENT AUTO 3 % (0-6); Hematocrit 39.2 % (33.0-51.0); Hemoglobin 13.0 g/dL (11.5-16.0); IMMATURE GRAN ABSOLUTE AUTO 0.02 K/mm3 (0.00-0.10); IMMATURE GRAN PERCENT AUTO 0 % (0-1); LYMPHOCYTES ABSOLUTE AUTO 2.01 K/mm3 (0.84-5.20); LYMPHOCYTES PERCENT AUTO 34 % (21-46); MONOCYTES ABSOLUTE AUTO 0.56 K/mm3 (0.16-1.47); MONOCYTES PERCENT AUTO 10 % (4-13); Mean Corpuscular HGB Conc 33.2 g/dL (31.5-36.5); Mean Corpuscular Volume 92 fL (80-100); NEUTROPHILS ABSOLUTE AUTO 3.05 K/mm3 (1.96-9.15); NEUTROPHILS PERCENT AUTO 52 % (41-73); NRBC ABSOLUTE 0.00 K/mm3 (0.00-0.02); NRBC Auto 0.0 /100 WBC (0.0-0.2); Platelet Count 243 K/mm3 (150-400); RDW Coefficient Variation 13.2 % (11.7-14.2); RDW Standard Deviation 44.6 fL (35.1-46.3)
[2025-08-19 17:33] LABS: Alanine Aminotransfer (ALT/SGP 20 U/L (12-78); Albumin, Blood 3.8 g/dL (3.4-5.0); Albumin/Globulin Ratio 1.0 (0.8-1.8); Anion Gap 6 mmol/L (3-11); Aspartate Aminotrans (AST/SGOT 13 U/L (12-37); Bilirubin, Total 0.4 mg/dL (0.1-1.0); Blood Urea Nitrogen 15 mg/dL (8-24); CHOL/HDL RATIO 2.2; CO2, Blood 28 mmol/L (21-32); Calcium, Blood 9.1 mg/dL (8.5-10.1); Chloride, Blood 106 mmol/L (98-108); Cholesterol 139 mg/dL (50-200); Creatinine, Blood 0.91 mg/dL (0.40-1.00); Globulin, Blood 3.7 g/dL (2.2-4.0); Glucose, Blood 94 mg/dL (70-99); HDL Cholesterol 64 mg/dL (>39); LDL/HDL RATIO 0.8; Low Density Lipoprotein Chol 49 mg/dL (0-110); Potassium, Blood 3.8 mmol/L (3.5-5.5); Sodium, Blood 136 mmol/L (136-145); Total Protein, Blood 7.5 g/dL (6.4-8.2); Triglycerides 130 mg/dL (30-160); Very Low Density Lipoprot Chol 26 mg/dL (6-32)
== END ==
LOC: LAB SHORT 10:10 → LAB 10:10
PROVIDERS: Family Medicine
DX: E11.42 Type 2 diabetes mellitus with diabetic polyneuropathy (principal); E78.5 Hyperlipidemia, unspecified; I11.0 Hypertensive heart disease with heart failure; I50.32 Chronic diastolic (congestive) heart failure; K21.01 Gastro-esophageal reflux disease with esophagitis, with bleeding; K26.9 Duodenal ulcer, unspecified as acute or chronic, without hemorrhage or perforation
CPT/HCPCS: 80053; 80061; 83036; 83880; 85025